=== PATIENT | female | born 1940 | race Caucasian/White ===

== ENCOUNTER → 2016-08-24 | Outpatient (CLI) | payer BC | LOC: BMCIMAGING 10:16 | DX: Z12.31 Encounter for screening mammogram for malignant neoplasm of breast (principal) | CPT/HCPCS: G0202 ==

== ENCOUNTER → 2016-12-07 | Outpatient (CLI) | payer BC | LOC: FIMAGING 14:47 | PROVIDERS: ATTEND Internal Medicine | DX: R91.1 Solitary pulmonary nodule (principal) ==

== ENCOUNTER → 2017-07-22 | Outpatient (CLI) | payer BC | LOC: FIMAGING 14:52 | PROVIDERS: ATTEND Internal Medicine Critical Care Medicine | DX: R91.8 Other nonspecific abnormal finding of lung field (principal); J45.909 Unspecified asthma, uncomplicated; I25.10 Atherosclerotic heart disease of native coronary artery without angina pectoris ==

== ENCOUNTER 2017-10-06 08:31 | Inpatient (IN) | payer BC, OTHER ==
--- NOTE | 2017-10-06 09:27 | EDPHY ---
H & P Time Seen by Provider: 10/06/17 08:55 HPI/ROS: CHIEF COMPLAINT: Right leg pain HISTORY OF PRESENT ILLNESS: 77-year-old female presents to the emergency department with severe pain in her right leg and right ankle. The patient states that she had an abrasion about 2 weeks ago at the posterior aspect of her right calf. She states that it was slow to heal. She saw her primary care provider as well as a voip technician. She was not started on antibiotics. She states that when she went to bed last night she was feeling fine and even when she woke up around 1 o'clock this morning to go the bathroom she did not notice pain in her right ankle or leg, however at 6 o'clock this morning she noted redness, swelling and severe pain in her right leg and ankle. She denies any known trauma or injury. She states she is unable to bear weight secondary to the pain. She has felt chilled since this morning. She felt nauseous when she arrived in the emergency department, however has not vomited. No back pain. REVIEW OF SYSTEMS: Constitutional: Subjective chills Eyes: No double or blurry vision. ENT: No sore throat. Respiratory: No cough, no shortness of breath. Cardiac: No chest pain. Gastrointestinal: No abdominal pain, vomiting or diarrhea. Genitourinary: No dysuria. Musculoskeletal: No neck or back pain. Skin: Redness swelling right ankle and right leg. No rashes. Neurological: No headache. Past Medical/Surgical History: Atrial fibrillation, heart murmur, orthopedic surgery Social History: Smoking Status: Never smoked Physical Exam: General Appearance: Alert, no distress. Eyes: Pupils equal and round. Extraocular motions are all intact. ENT: Mouth: Mucous membranes moist. Respiratory: No wheezing, rhonchi, or rales, lungs are clear to auscultation. Cardiovascular: Regular rate and rhythm. Systolic ejection murmur noted. Gastrointestinal: Abdomen is soft and nontender, no masses, no rebound or guarding, bowel sounds normal. Neurological: Alert and oriented x 3, cranial nerves II through XII grossly intact Skin: Skin is warm and dry. She has redness noted to the anterior medial aspect of her right ankle extending up into her right mid calf. No vesicles. Extremely tender to palpate even just to light touch. She has mild pain with passive range of motion of her right ankle. It is slightly swollen. It is not circumferential. No lymphangitis. Normal sensation to light touch with normal 2 point discrimination. Strong dorsalis pedis pulse on the dorsal aspect of her left foot. Musculoskeletal: Nontender to palpate along the cervical, thoracic or lumbar spine. Neck is supple. Extremities: Full range of motion and no peripheral edema. Psychiatric: Patient is oriented X 3, there is no agitation. Constitutional: Initial Vital Signs Temperature (C) 37 C 10/06/17 08:38 Heart Rate 119 H 10/06/17 08:38 Respiratory Rate 20 10/06/17 08:38 Blood Pressure 155/82 H 10/06/17 08:38 O2 Sat (%) 95 10/06/17 08:38 O2 Delivery Mode Room Air Allergies/Adverse Reactions: lisinopril Allergy (Verified 10/06/17 08:35) Sulfa (Sulfonamide Antibiotics) Allergy (Verified 10/06/17 08:35) Home Medications: Medication Instructions Recorded Apixaban [Eliquis] 5 mg PO BID 10/06/17 Cholecalciferol Vit D3 [Vitamin D3 1,000 units PO DAILY 10/06/17 (*)] Dronedarone HCl [Multaq 400 mg (*)] 400 mg PO BIDMEAL 10/06/17 Furosemide [Furosemide] 20 mg PO HS 10/06/17 Herbals/Supplements -Info Only 1 ea PO DAILY 10/06/17 Levalbuterol Inhaler [Xopenex Hfa 1 puffs IH DAILY PRN 10/06/17 Inhaler (*)] Potassium Chloride [Potassium 20 meq PO HS 10/06/17 Chloride] amLODIPine/VALSARTAN 1 each PO DAILY 10/06/17 [Amlodipine-Valsartan 5-160 mg] Medical Decision Making ED Course/Re-evaluation: 77-year-old female presents to the emergency department with severe pain in her right leg unable to bear weight. Clinically the patient appears to have redness and warmth consistent with cellulitis. Although this was a very acute onset. The patient was also seen examined by Dr. Marvin Uribe, who recommends admission to the hospital as well as IV vancomycin for cellulitis. The patient will be admitted to hospitalist. Differential Diagnosis: Including but not limited to cellulitis, herpes zoster, DVT, osteomyelitis, wound infection - Data Points Laboratory Results: Laboratory Results 10/06/17 09:20 10/06/17 09:20 10/06/17 10/06/17 10/06/17 09:20 09:20 09:20 WBC 8.68 10^3/uL 10^3/uL (3.80-9.50) RBC 3.82 10^6/uL L 10^6/uL (4.18-5.33) Hgb 11.8 g/dL L g/dL (12.6-16.3) Hct 35.0 % L % (38.0-47.0) MCV 91.6 fL fL (81.5-99.8) MCH 30.9 pg pg (27.9-34.1) MCHC 33.7 g/dL g/dL (32.4-36.7) RDW 13.7 % % (11.5-15.2) Plt Count 167 10^3/uL 10^3/uL (150-400) MPV 9.0 fL fL (8.7-11.7) Neut % (Auto) 91.0 % H % (39.3-74.2) Lymph % (Auto) 6.8 % L % (15.0-45.0) [place] % (Auto) 1.3 % L % (4.5-13.0) Eos % (Auto) 0.1 % L % (0.6-7.6) Baso % (Auto) 0.2 % L % (0.3-1.7) Nucleat RBC Rel Count 0.0 % % (0.0-0.2) Absolute Neuts (auto) 7.90 10^3/uL H 10^3/uL (1.70-6.50) Absolute Lymphs (auto) 0.59 10^3/uL L 10^3/uL (1.00-3.00) Absolute Monos (auto) 0.11 10^3/uL L 10^3/uL (0.30-0.80) Absolute Eos (auto) 0.01 10^3/uL L 10^3/uL (0.03-0.40) Absolute Basos (auto) 0.02 10^3/uL 10^3/uL (0.02-0.10) Absolute Nucleated RBC 0.00 10^3/uL 10^3/uL (0-0.01) Immature Gran % 0.6 % % (0.0-1.1) Immature Gran # 0.05 10^3/uL 10^3/uL (0.00-0.10) VBG Lactic Acid 2.3 mmol/L H mmol/L (0.7-2.1) Sodium 137 mEq/L mEq/L (135-145) Potassium 4.0 mEq/L mEq/L (3.5-5.2) Chloride 104 mEq/L mEq/L (97-110) Carbon Dioxide 23 mEq/l mEq/l (22-31) Anion Gap 10 mEq/L mEq/L (8-16) BUN 13 mg/dL mg/dL (7-23) Creatinine 0.5 mg/dL L mg/dL (0.6-1.0) Estimated GFR > 60 Glucose 105 mg/dL H mg/dL (70-100) Calcium 8.7 mg/dL mg/dL (8.5-10.4) Medications Given: Acetaminophen (Tylenol) 650 mg PO Q4HRS PRN PRN Reason: Pain, Mild/Fever, Can Take PO Stop: 04/04/18 11:19 Last Admin: 10/06/17 14:25 Dose: 650 mg Sodium Chloride (Ns) 1,000 mls @ 150 mls/hr IV CONT SUKHI Stop: 04/04/18 13:14 Last Admin: 10/06/17 14:59 Dose: 1,000 mls Clindamycin Phosphate/Dextrose (Cleocin 600 Mg (Premix)) 50 mls @ 100 mls/hr IV Q8HRS SUKHI PRN Reason: Protocol Stop: 11/05/17 15:14 Last Admin: 10/06/17 15:17 Dose: 50 mls Ondansetron HCl (Zofran) 4 mg IVP Q4HRS PRN PRN Reason: Nausea/Vomiting, Can't Take PO Stop: 04/04/18 11:19 Last Admin: 10/06/17 12:47 Dose: 4 mg Oxycodone HCl (Oxycodone Ir) 5 - 10 mg PO Q3HRS PRN PRN Reason: Pain, Severe Able to Take PO Stop: 10/16/17 11:19 Last Admin: 10/06/17 14:25 Dose: 5 mg Discontinued Medications Vancomycin/Sodium Chloride (Vancomycin 1 Gm (Premix)) 250 mls @ 250 mls/hr IV EDNOW ONE PRN Reason: Protocol Stop: 10/06/17 12:19 Last Admin: 10/06/17 11:35 Dose: 250 mls Departure - Departure Disposition: [facility] Acute Clinical Impression: Cellulitis of right leg Condition: Good
[2017-10-06 09:38] LABS: PLATELET COUNT 167 10^3/uL (150-400)
[2017-10-06] MEDS ORDERED: ONDANSETRON DISINTEGRATING 4 MG TAB PO PRN (11:20)
[2017-10-06] MEDS ORDERED: VANCOMYCIN HCL/NORMAL SALINE 250 ML IV ONE (11:20)
[2017-10-06] MEDS: ONDANSETRON 4 MG/2 ML VIAL IVP PRN ×2 (12:47→21:05)
[2017-10-06] MEDS: oxyCODONE IR 5 MG TAB PO PRN ×3 (12:50→21:23)
[2017-10-06] MEDS ORDERED: LEVALBUTEROL INHALER 200 PUFFS/15 GM MDI IH PRN (13:20)
--- NOTE | 2017-10-06 13:55 | GHP ---
[f rep st] HISTORY AND PHYSICAL DATE OF ADMISSION: 10/06/2017 CHIEF COMPLAINT: Right leg pain. HISTORY OF PRESENT ILLNESS: The patient is a 77-year-old female who presented to the emergency room today with severe, sudden acute onset of right leg and ankle pain. She tells me that she has been de aling with an abrasion for approximately 2 weeks on the posterior aspect of her right calf. She stat es that it was never erythematous but was slow to heal. She has seen her primary care physician for this and was never initiated on antibiotic therapy. She was told on Saturday that if she developed any redness or pain she should go to the emergency room for further evaluation. Last night she said she was in her normal state of health when she went to bed. She woke up at 1 o'clock in the morning to use the bathroom, did not notice any pain or redness of that right leg. However, at 6 a.m. this morn ing she noticed significant redness with swelling and severe sudden acute pain of the right leg. She states that it is so painful she is unable to ambulate on it. She also tells me that since she has been in the emergency room she feels that the redness and pain have significantly increased in the la st several hours. She denies any other known trauma or injury to this leg. She tells me that she is feeling chilled intermittently but has no other complaints. She denies any current nausea or vomiti ng. She denies any shortness of breath, dyspnea, or chest pain. She denies any headache, blurry vis ion, or other abnormalities. REVIEW OF SYSTEMS: Comprehensive 10-point review of systems is negative other than noted in the HPI. PAST MEDICAL HISTORY: Atrial fibrillation, heart murmur. PAST SURGICAL HISTORY: Bilateral hip replacements. SOCIAL HISTORY: The patient is . Her at the bedside. She resides independently with him. She has never been a smoker. She denies any alcohol or drug abuse or use. HOME MEDICATIONS: Vitamin D, Xopenex, Multaq, amlodipine, valsartan, potassium, Lasix, Eliquis. FAMILY HISTORY: Reviewed and noncontributory. ALLERGIES: Lisinopril, sulfa. PHYSICAL EXAM: GENERAL: The patient is alert and oriented and in no acute distress. VITAL SIGNS: Afebrile at 37, pulse is 109, respiratory rate 16, blood pressure is 134/64. She is saturating 94% o n room air. HEENT: Normocephalic, atraumatic. Mucosal membranes are moist. Pupils equal, round, r eactive to light. RESPIRATORY: Lungs are clear to auscultation bilaterally. No rhonchi or wheezes appreciated. CARDIOVASCULAR: A systolic ejection murmur is noted. She is in irregular rhythm. GAS TROINTESTINAL: Abdomen: Bowel sounds are positive. Soft and nontender. There is no guarding or ri gidity noted. NEUROLOGICAL: The patient is focally intact. She is alert and oriented. SKIN: Warm and dry. She has erythema noted to the anteromedial aspect of the right ankle extending up into her right mid calf. It is extremely tender to palpate, even just to light touch. There is some edema n oted. PULSES: Dorsal pulses are present on the left foot. EXTREMITIES: Full range of motion. No clubbing or cyanosis appreciated. LABORATORY EVALUATION: Lactate of 2.3 with a hemoglobin of 11.8 and hematocrit of 35. ASSESSMENT AND PLAN: The patient is a 77-year-old female who presented to the emergency room with co mplaints of right leg pain. She has been evaluated and diagnosed with: 1. Aggressive cellulitis. Patient has received IV vancomycin in the emergency room. I have consult ed Infectious Disease, who will come see the patient shortly. The cellulitis is concerning as it is fairly aggressive and does appear to be causing a significant amount of discomfort. Further treatmen t and therapy will be decided in conjunction with Infectious Disease recommendation. 2. History of atrial fibrillation. She is rate controlled. We will continue her Eliquis for prophy lactic anticoagulation. 3. Hypertension. We will continue the patient's previously prescribed antihypertensive medications and monitor this. 4. Elevated lactate. The patient will receive IV hydration at this time. 5. Disposition. She will be admitted to observation status with further changes in her hospital cou rse warranting inpatient status. I have discussed the patient with Dr. Dejuan Vann of Infectious Dise ase, as well as Jessica Carr of the emergency room. We will monitor the patient closely with citlalli r therapeutic plan to be decided. /[id number]/MODL
[2017-10-06] MEDS ORDERED: traMADol 50 MG TAB PO PRN (14:21)
[2017-10-06] MEDS: ACETAMINOPHEN 325 MG TAB PO PRN (14:25)
[2017-10-06] MEDS: NS 1,000 ML IV SCH (14:59)
[2017-10-06] MEDS: CLINDAMYCIN 600 MG/DEXTROSE 50 ML IV SCH ×2 (15:17→21:05)
[2017-10-06] MEDS ORDERED: CLINDAMYCIN 600 MG/DEXTROSE 50 ML IV SCH (15:30)
[2017-10-06] MEDS ORDERED: ceFAZolin 2 GM/DEXTROSE 100 ML IV SCH ×2 (16:00→22:00)
--- NOTE | 2017-10-06 16:41 | GCON ---
[f rep st] CONSULTATION INFECTIOUS DISEASE CONSULTATION REFERRING PHYSICIAN: Christy Merino NP REASON FOR CONSULTATION: Right lower extremity rapid onset cellulitis for further evaluation and opinion. CHIEF COMPLAINT: Acute onset redness, pain of right foot. HISTORY OF PRESENT ILLNESS: This is a 77-year-old female, with a past medical history significant for atrial fibrillation, hypertension, heart murmur, who woke up suddenly today with redness involving her foot and ankle. It became extremely tender to touch and, from this morning till now, the area of redness has extended up to her mid calf and leg and partially over the dorsum of her foot. Also, the area of redness has changed in certain areas from acute erythema to some ecchymotic changes. It is extremely tender today, even just to light touch. She denied fevers but had shaking chills on her way to the ER today. She states that she had an abrasion on the back of her leg a couple weeks ago sustained from the back of a chair while she was at a banquet in [place]. She states that she was wearing slacks at the time, and she does not know that there was any actual contact or rips in the slacks. She states that she went to an urgent care to have it evaluated recently, and they just felt it was a healing wound. She saw her bacteriologist food earlier this week, and he felt it was a residual form of a blister and would go away. She saw her primary care doctor on Saturday who also felt that it did not have a classic appearance of an acute infection. She did not have any recent otherwise trauma to the leg. She had not submerged her leg in any fresh water, ocean water, or hot tubs. Blood cultures x2 sets were drawn in the ER, and she was given a dose of vancomycin 1 g. Infectious Disease is now consulted for further evaluation and opinion. REVIEW OF SYSTEMS: GENERAL: No fevers but shaking chills today on her way to the ER. HEAD: No headaches. EYES: No change in vision. ENT: No sore throat , difficulty swallowing, ear pain, or drainage. Cardiovascular: No chest pain or rapid heartbeat. RESPIRATORY: No shortness of breath, cough, or sputum production. ABDOMEN: No nausea, vomiting, abdominal pain, diarrhea. : No dysuria or hematuria. BACK: No flank pain or increase in her stable chronic back pain. EXTREMITIES: No other areas of joint pain. SKIN: No other areas of rashes or open wounds. SKIN: As above. Rest of 10-point review of systems essentially negative except for above. PAST MEDICAL HISTORY: Significant for atrial fibrillation, hypertension, heart murmur. PAST SURGICAL HISTORY: Significant for bilateral hip replacements. ALLERGIES: Sulfa which gives her vomiting and upset stomach. No shortness of breath, throat swelling, hives. Lisinopril gives her cough. Thus, I explained to her that both of these are not true allergies, but adverse effects or intolerances. SOCIAL HISTORY: She is . She is a nonsmoker. She does not drink alcohol. She was in [place] a couple of weeks ago for a banquet. Her daughter is here as well at bedside, along with her . FAMILY HISTORY: Significant for her brother and mother having leukemia, and her father having heart disease and high blood pressure. PHYSICAL EXAMINATION: VITAL SIGNS: Temperature, current, 37.0, pulse is 109, blood pressure 134/64, pulse is 16, and O2 saturation 94% on room air. GENERAL : Patient is sitting in bed. No acute respiratory distress. Awake, alert, and oriented x3. HEENT: Head is normocephalic, atraumatic. Pupils are equal, round, reactive to light. No conjunctival injection. No petechiae noted. Oropharynx is clear. No posterior erythema or thrush. CARDIOVASCULAR: S1, S2. Irregular rate and rhythm, with a 3/6 systolic murmur appreciated. RESPIRATORY: Clear bilaterally. No rhonchi appreciated. ABDOMEN: Positive bowel sounds in all 4 quadrants. Soft, nontender, nondistended. No organomegaly appreciated. EXTREMITIES: No lower extremity edema. She has wrinkling appreciated bilaterally and did have edema about 48 hours ago on both extremities. She has some burning discoloration involving both lower extremities. No tenia pedis noted bilaterally. She has erythema very predominantly on the medial aspect of her foot adjacent to the ankle and extending up to the lower leg, and this is present on the posterior aspect, extending to the mid calf, and then to a certain degree on the anterior aspect as well. There is marked pink erythema on the dorsal aspect of the foot and anterior aspect of the leg as well today. SKIN: The leg, foot, and ankle is extremely tender to touch. There is some ecchymotic changes, particularly on the medial aspect of the ankle and foot area and lower leg that is extremely tender as well. She does appear to have perhaps an early looking blister-like development also as well on the posterior aspect of the leg. An old previous abrasion that she mentioned appears kind of within the area of erythema. There is no active blister at this present time. LABORATORY DATA: White blood cell count is 8.6, hemoglobin 11.8, platelets are 167, neutrophil count 91%. Venous lactic acid 2.3. Chemistry: Sodium 137, potassium 4.0, chloride 104, bicarb 23, BUN is 13, creatinine 0.5, glucose is 105. Blood cultures x2 sets are pending. I reviewed her microbiology data dating back to 2009. She has no evidence of MRSA present in any cultures. She has had E coli isolated in several urine cultures. ASSESSMENT: Acute onset right lower extremity cellulitis with some early ecchymotic changes. PLAN: Given the clinical onset and presentation, as well as progression over today, as well as extremely painful in nature, concern for possible toxin- mediated process and or deeper infectious process such necrotizing fascitis. The character appears more consistent with a streptococcal infection, although cannot rule out a staphylococcal infection. There is no evidence of any abscess at this present time. Would recommend a stat MRI of the leg and foot to ensure no deeper involvement. If such is present, then will need surgical consultation for exploration and debridement. The above was explained in detail to the patient, her , and her daughter and family at the bedside. For now, given the clinical presentation that looks appears more consistent with streptococcal, will change vancomycin to Ancef therapy but will add clindamycin. Recommend elevation of the lower extremity and have positioned her lower extremity in that fashion for her. I have outlined the areas of erythema as well. Care was coordinated with the hospitalist team and her nurse. Thank you very much for giving us the opportunity to care for your patient in consultation. /[id number]/MODL MTDD
[2017-10-06] MEDS ORDERED: GADOBUTROL 10 ML VIAL IVP ONE (16:53)
[2017-10-06] MEDS: DRONEDARONE HCL 400 MG TAB PO SCH (18:04)
[2017-10-06] MEDS: ceFAZolin 2 GM/SWFI 2 GM/20 ML SYR IVP SCH (18:08)
[2017-10-06] MEDS ORDERED: NON-FORMULARY NEW DRUG (Potassium Chloride [Potassium Chloride] 20 MEQ) PO SCH (21:00)
[2017-10-06] MEDS: APIXABAN 5 MG TAB PO SCH (21:05)
[2017-10-06] MEDS: POTASSIUM CL 20 MEQ TAB PO SCH (21:05)
[2017-10-06] MEDS: FUROSEMIDE 20 MG TAB PO SCH (21:05)
[2017-10-07] MEDS: ceFAZolin 2 GM/SWFI 2 GM/20 ML SYR IVP SCH ×4 (00:24→22:31)
[2017-10-07] MEDS: NS 1,000 ML IV SCH (03:20)
[2017-10-07 05:13] LABS: PLATELET COUNT 163 10^3/uL (150-400)
[2017-10-07] MEDS: CLINDAMYCIN 600 MG/DEXTROSE 50 ML IV SCH ×3 (05:14→22:25)
[2017-10-07] MEDS: oxyCODONE IR 5 MG TAB PO PRN ×2 (05:43→17:15)
[2017-10-07] MEDS: ONDANSETRON 4 MG/2 ML VIAL IVP PRN ×3 (05:44→16:48)
--- NOTE | 2017-10-07 08:18 | HOSPPROG ---
Hospitalist Progress Note Assessment/Plan: # R leg cellulitis - slight extension beyond marked line - will not change abx at this time - cont ancef and clinda per ID recs # hypoxia, nocturnal - possibly ASHLEY; PE unlikely given eliquis - check CXR today # a-fib - cont eliquis # htn - cont norvasc, valsartan, lasix # anemia - slightly lower than previous # hx pulm nodules - followed by Dr Bui as outpatient Subjective: afebrile overnight; no diarrhea, SOB or CP Objective: Vital Signs Temp Pulse Resp BP Pulse Ox 36.8 C 90 16 109/57 L 92 10/07/17 07:44 10/07/17 07:44 10/07/17 07:44 10/07/17 07:44 10/07/17 07:44 Laboratory Results 10/07/17 04:43 10/07/17 04:43 chart reviewed MRI prelim read reviewed - Physical Exam Constitutional: no apparent distress, appears nourished Cardiovascular: no murmur, rub, or gallop, irregularly irregular Respiratory: no respiratory distress, no rales or rhonchi Gastrointestinal: normoactive bowel sounds, soft, non-tender abdomen Musculoskeletal: other (R leg with erythema/warmth, TTP; slight extension beyond marked line on post calf) ICD10 Worksheet Patient Problems: Problems Problem Status Onset Cellulitis of right leg Acute
[2017-10-07] MEDS ORDERED: AMLODIPINE PO SCH (09:00)
[2017-10-07] MEDS ORDERED: VALSARTAN PO SCH (09:00)
[2017-10-07] MEDS ORDERED: Herbals/Supplements -Info Only PO SCH (09:00)
[2017-10-07] MEDS: APIXABAN 5 MG TAB PO SCH ×2 (09:47→20:25)
[2017-10-07] MEDS: DRONEDARONE HCL 400 MG TAB PO SCH ×2 (09:47→18:39)
[2017-10-07] MEDS: VALSARTAN 160 MG TAB PO SCH ×2 (09:48→12:33)
[2017-10-07] MEDS: amLODIPine BESYLATE 5 MG TAB PO SCH ×3 (09:48→10:55)
[2017-10-07] MEDS: CHOLECALCIFEROL VIT D3 1,000 UNITS TAB PO SCH (09:48)
[2017-10-07] MEDS ORDERED: DILTIAZEM 125 MG in D5W 125 ML IV SCH (11:30)
--- NOTE | 2017-10-07 12:16 | CPEKG ---
Heart Rate: 141 RR Interval: 426 QRSD Interval: 74 QT Interval: 288 QTC Interval: 441 QRS [place]: -3 T Wave [place]: 65 EKG Severity - ABNORMAL ECG - EKG Impression: ATRIAL FIBRILLATION, V-RATE 106-160 Electronically Signed By: Narcisa Valadez 07-Oct-2017 19:28:14
--- NOTE | 2017-10-07 12:49 | ASMTCASEMG ---
Living Arrangements What is your living Answers: With Spouse arrangement? Who do you live with? Type Of Residence What kind of residence do Answers: House you live in? Discharge Plan Comments Coordination Status Comments Notes: Pt is a 77 y/o female admitted for cellulitis of right ankle and leg. Pt is in rapid afib and will be transferred to PCU. Pt will most likely d/c independent when medically stable. No therapies ordered at this time. CM available for changes. Plan: Independent Date Signed: 10/07/2017 12:48 PM Electronically Signed By:ROSIO Ervin
--- NOTE | 2017-10-07 13:16 | PCMIDPN ---
Assessment/Plan: 1. Necrotizing cellulitis right lower extremity without MRI evidence of fasciitis or myositis: Agree that clinical history seems more consistent with streptococcal etiology. Continue both Ancef and clindamycin as is. Patient needs to keep her right lower extremity elevated as best she can, and the rationale for this was explained to her in detail today. She expressed understanding. 2. Oral candidiasis: Nystatin swish and spit. Over 25 min was spent with this patient today. 10/07/17 13:18 Subjective: Patient is being transferred to the cardiac floor secondary to new onset atrial fibrillation. Patient states this transpired in the past before hip replacement. States that her right lower extremity is still painful. No numbness of the lower extremity. Denies diarrhea. Objective: Ancef 2 g IV q.8 hours day 1 Clindamycin 600 mg IV q.8 hours day 1 Afebrile Vital Signs Temp Pulse Resp BP Pulse Ox 36.9 C 134 H 18 95/68 L 95 10/07/17 11:45 10/07/17 11:45 10/07/17 11:45 10/07/17 11:45 10/07/17 11:45 Laboratory Results 10/07/17 04:43 10/07/17 04:43 Blood cultures x2 pending - Physical Exam General Appearance: alert, no apparent distress EENT: thrush Respiratory: lungs clear Cardiac/Chest: irregularly irregular Extremities: other (Right lower extremity with beet red erythema, with small areas of necrosis medial, and posterior early. No bullae or blisters noted. Patient has sensation throughout. Swelling noted, but not significantly so compared with the left. Erythema spares the dorsum of the foot. No tinea pedis. No significant extension erythema beyond the demarcated borders.) Abdomen: non-tender, soft Skin: No rash ICD10 Worksheet Patient Problems: Problems Problem Status Onset Cellulitis of right leg Acute
--- NOTE | 2017-10-07 15:28 | PDMN ---
Medical Necessity Medical necessity: M70 cellulitis: progressive concern for poss deeper infection process such as necrotizing fasciitis. pt also with tachycardia, likely afib, transfer to PCU with monitoring, starting dilt gtt., cont. med nec monitoring, and tx.
[2017-10-07] MEDS: NYSTATIN SUSP 500000 UNIT/5 ML UDCUP PO SCH ×2 (15:49→20:23)
[2017-10-07] MEDS: FUROSEMIDE 20 MG TAB PO SCH (20:24)
[2017-10-07] MEDS: POTASSIUM CL 20 MEQ TAB PO SCH (20:24)
[2017-10-08 03:59] LABS: PLATELET COUNT 164 10^3/uL (150-400)
[2017-10-08] MEDS: NYSTATIN SUSP 500000 UNIT/5 ML UDCUP PO SCH ×4 (05:58→22:04)
[2017-10-08] MEDS: CLINDAMYCIN 600 MG/DEXTROSE 50 ML IV SCH ×3 (05:58→22:04)
[2017-10-08] MEDS: ceFAZolin 2 GM/SWFI 2 GM/20 ML SYR IVP SCH ×3 (09:01→23:14)
[2017-10-08] MEDS: APIXABAN 5 MG TAB PO SCH ×2 (09:01→22:04)
[2017-10-08] MEDS: CHOLECALCIFEROL VIT D3 1,000 UNITS TAB PO SCH (09:01)
[2017-10-08] MEDS: DRONEDARONE HCL 400 MG TAB PO SCH ×2 (09:02→17:21)
--- NOTE | 2017-10-08 09:29 | HOSPPROG ---
Hospitalist Progress Note Assessment/Plan: # R leg cellulitis - slight improvement today - cont ancef and clinda per ID recs # a-fib, episode of RVR yesterday which resolved - cont eliquis - cont multaq # hypoxia, nocturnal - possibly ASHLEY; PE unlikely given eliquis # htn - holding norvasc, valsartan, lasix # anemia - stable # hx pulm nodules - followed by Dr Bui as outpatient Subjective: had an episode of a-fib yesterday; no in NSR; leg with less pain Objective: Vital Signs Temp Pulse Resp BP Pulse Ox 36.7 C 86 20 114/63 93 10/08/17 07:58 10/08/17 07:58 10/08/17 03:32 10/08/17 07:58 10/08/17 07:58 Laboratory Results 10/08/17 03:45 10/08/17 03:45 10/07/17 10/08/17 10/09/17 05:59 05:59 05:59 Intake Total 250 Balance 250 CXR personally reviewed tele personally reviewed - Physical Exam Constitutional: no apparent distress, appears nourished Cardiovascular: regular rate and rhythym, no murmur, rub, or gallop Respiratory: no respiratory distress, no rales or rhonchi, clear to auscultation Gastrointestinal: soft, non-tender abdomen, no palpable masses Musculoskeletal: other (leg erythema improved; still TTP) ICD10 Worksheet Patient Problems: Problems Problem Status Onset Cellulitis of right leg Acute
[2017-10-08] MEDS: ACETAMINOPHEN 325 MG TAB PO PRN (10:39)
--- NOTE | 2017-10-08 14:41 | PCMIDPN ---
Assessment/Plan: Assessment/Plan: 1. Extensive LLE cellulitis with ecchymotic/early necrotic changes: - some improvment clinically although slow - wbc elevated and only minimally better -blood cx ngtd -ecchyotic/early necrosis changes new yesterday (compared to Saturday) but no other new areas -Continue with Ancef + Clinda - low threshold to repeat MRI right leg vs surgical eval- if doens't show continued improvement or new changes. EXplaned this to patient -recheck labs in Am. - conitnue with LE elevation. - care coordinated with hospitalist team meds ancef clinda Subjective: afebrile. overall patient feels better. no further chills. no nausea but does have decrease in appetite. denies sob, abd pain or diarrhea. requiring o2 via nc. 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 has not taken pain meds since yesterday. however pain meds due make her more nauseaous. Objective: Vital Signs Temp Pulse Resp BP Pulse Ox 37.1 C 90 16 102/47 L 94 10/08/17 13:30 10/08/17 13:30 10/08/17 13:30 10/08/17 13:30 10/08/17 13:30 Laboratory Results 10/08/17 03:45 10/08/17 03:45 10/07/17 10/08/17 10/09/17 05:59 05:59 05:59 Intake Total 250 Balance 250 - Physical Exam General Appearance: alert, no apparent distress Respiratory: lungs clear Cardiac/Chest: regular rate, rhythm Extremities: swelling Abdomen: normal bowel sounds, non-tender, soft, No distended Skin: erythema (RLE: erythema lower leg (anterior, medial, posterior), and erythema on posterior leg 2/[address] up. scattered areas of ecchmosis. very tender to palpate. lower leg medial area which was the worst when she came in is looking better. she has one small blister on posterior lower calf. less warm. les swelling compared to two days ago ) ICD10 Worksheet Patient Problems: Problems Problem Status Onset Cellulitis of right leg Acute
[2017-10-08] MEDS: FUROSEMIDE 20 MG TAB PO SCH (15:48)
--- NOTE | 2017-10-08 16:11 | ASMTCMCOM ---
CM Note CM Note Notes: 10/08/2017 Case Management Note Reviewed chart, discussed case with RN. PT is recommending home for pt. The case management discharge plan will take into account the outcome of planned MRI for tomorrow. Antibiotic needs at discharge remain unclear. Case Management d/c poc: to be determined Case Management to follow. Date Signed: 10/08/2017 04:10 PM Electronically Signed By:Meghana Carrion RN
[2017-10-08] MEDS: POTASSIUM CL 20 MEQ TAB PO SCH (22:04)
[2017-10-09 04:37] LABS: PLATELET COUNT 185 10^3/uL (150-400)
[2017-10-09] MEDS: CLINDAMYCIN 600 MG/DEXTROSE 50 ML IV SCH ×3 (05:48→21:52)
[2017-10-09] MEDS: NYSTATIN SUSP 500000 UNIT/5 ML UDCUP PO SCH ×4 (05:48→21:52)
[2017-10-09] MEDS: ceFAZolin 2 GM/SWFI 2 GM/20 ML SYR IVP SCH ×3 (08:52→23:02)
--- NOTE | 2017-10-09 08:52 | PCMIDPN ---
Assessment/Plan: Severe RLE Cellulitis with couple areas of necrotic material, most prominently on posterior calf. About 20-40% better by patient report from admit, which is NOT suggestive of nec fasciitis but still some concern for localized areas necrotizing cellulitis that may need debridement --patient on dual therapy with clindamycin and cephalosporin. Clinda for protein binding character/unga effect, likely dc clindamycin soon --offload RLE --ask surgery to eval posterior leg, MRI negative. May need to hold Eliquis meds clindamycin 600mg IV q8h#3 Ancef 2gm IV q8h Eliquis 5mg BID for afib micro 10/06 blood cx (2) NGTD Subjective: denies diarrhea leg pain walking 20% leg pain at rest 40% better low appetite Objective: Vital Signs Temp Pulse Resp BP Pulse Ox 36.8 C 83 17 128/71 H 94 10/09/17 07:28 10/09/17 07:28 10/09/17 07:28 10/09/17 07:28 10/09/17 07:28 Laboratory Results 10/09/17 03:58 10/08/17 03:45 10/08/17 10/09/17 10/10/17 05:59 05:59 05:59 Intake Total 250 950 Balance 250 950 - Physical Exam General Appearance: alert, no apparent distress Respiratory: No accessory muscle use Neck: supple Cardiac/Chest: regular rate, rhythm Extremities: calf tenderness (r mid calf with associated necrotic base), erythema (jairo erythema RLE with recession from some lines and extension in other areas) Skin: No rash Neuro/Psych: alert, normal mood/affect, oriented x 3 - Time Spent With Patient Time Spent with Patient: greater than 35 minutes (care coordinated with Dr. Russell, RN Aysha) Time Spent with Patient: Greater than 35 minutes spent on this patients care, greater than 50% of time spent counseling, educating, and coordinating care regarding the above mentioned plan. ICD10 Worksheet Patient Problems: Problems Problem Status Onset Cellulitis of right leg Acute
[2017-10-09] MEDS: CHOLECALCIFEROL VIT D3 1,000 UNITS TAB PO SCH (08:53)
[2017-10-09] MEDS: APIXABAN 5 MG TAB PO SCH (08:59)
[2017-10-09] MEDS: DRONEDARONE HCL 400 MG TAB PO SCH ×2 (08:59→17:53)
--- NOTE | 2017-10-09 09:11 | HOSPPROG ---
Hospitalist Progress Note Assessment/Plan: # R leg cellulitis - slight improvement today. WBC's normal. MRI neg for osteo. Discussed with ID. - cont ancef and clinda per ID recs - check CRP - surgery to eval today - pressure relieving positioning on back of leg # a-fib, episode of RVR which resolved - cont eliquis - cont multaq # hypoxia, nocturnal - possibly ASHLEY; PE unlikely given eliquis, suspect atelectatic - add IS - consider CXR if not improving # htn - holding norvasc, valsartan - cont home lasix dose # anemia - stable # hx pulm nodules - followed by Dr Bui as outpatient # Full code # dispo - cont inpt Subjective: Pt doing a little better. No fevers. Leg still quite tender, posterior calf especially. No CP or SOB. Denies cough. Objective: Vital Signs Temp Pulse Resp BP Pulse Ox 36.8 C 83 17 128/71 H 94 10/09/17 07:28 10/09/17 07:28 10/09/17 07:28 10/09/17 07:28 10/09/17 07:28 Laboratory Results 10/09/17 03:58 10/08/17 03:45 10/08/17 10/09/17 10/10/17 05:59 05:59 05:59 Intake Total 250 950 Balance 250 950 - Physical Exam Constitutional: no apparent distress Eyes: PERRL Ears, Nose, Mouth, Throat: moist mucous membranes Cardiovascular: regular rate and rhythym Respiratory: other (faint bibasilar atelectatic crackles) Gastrointestinal: normoactive bowel sounds, soft, non-tender abdomen Skin: warm, other (RLE patchy erythema, darker patches on posterior right calf with small open wound) Musculoskeletal: full muscle strength Neurologic: AAOx3 Psychiatric: interacting appropriately ICD10 Worksheet Patient Problems: Problems Problem Status Onset Cellulitis of right leg Acute
--- NOTE | 2017-10-09 14:31 | PDCONSULT ---
General Purchasing Agent Note: 77 y/o female admitted 10/06/17 for RLE cellulitis. She injured her right calf the week before on a metal chair leg and had a small puncture site that drained clear fluid for several days prior to admission. She was started on IV Abx and has been followed by ID after admission to the hospitalist service. Surgical consultation was requested by Dr. Lindsay for possible surgical debridement. MRI on 10/06 showed no fracture, foreign body or fluid collection. Her cellulitis has improved, but not resolved since admission. Her wbc was normal today. BC have been no growth so far PMH: bilateral TKA Afib, paroxysmal meds: Eliquis 5 mg po BID Allergies: lisinopril, Sulfa non-smoker SH: and accompanied by her PE: pleasant elderly female in NAD RLE swelling and erythema to the mid calf stigmata of chronic venous stasis change pedal pulses +2/+2 +3 pitting edema 5 x 10 mm eschar right posterior mid calf with small amount of serous drainage no fluctuance LLE stigmata of chronic venous stasis change pedal pulses +2/+2 Imp: RLE cellulitis-slow to improve possible venous stasis changes Rec:continue IV antibiotics/elevation, I do not think surgical debridement would be helpful at this point Hold Eliquis x 24 hours and reassess tomorrow for worsening typically one would wait 48 hours after last Eliquis dose before surgery Janice Lofton MD, FACS
[2017-10-09] MEDS: FUROSEMIDE 20 MG TAB PO SCH (15:11)
--- NOTE | 2017-10-09 16:45 | ASMTCMCOM ---
CM Note CM Note Notes: Pt on IV ABX's for RLE cellulitis. Not clear yet if she will need LT IV ABX's, talked w/pt and about this possibility and they would likely want to do this at home; pt and family comfortable w/learning how to adminitster. Surgical consult today- no surgery planned at this time. PT felt pt would be fine to dc home and likely will not need home PT. Pt has very good family support. CM will follow. Date Signed: 10/09/2017 04:44 PM Electronically Signed By:Rand Dominguez RN
[2017-10-09] MEDS: POTASSIUM CL 20 MEQ TAB PO SCH (21:52)
[2017-10-10] MEDS: NYSTATIN SUSP 500000 UNIT/5 ML UDCUP PO SCH ×3 (06:15→15:51)
[2017-10-10] MEDS: CLINDAMYCIN 600 MG/DEXTROSE 50 ML IV SCH ×3 (06:15→22:14)
[2017-10-10] MEDS: ceFAZolin 2 GM/SWFI 2 GM/20 ML SYR IVP SCH ×3 (09:10→23:34)
[2017-10-10] MEDS: CHOLECALCIFEROL VIT D3 1,000 UNITS TAB PO SCH (09:10)
[2017-10-10] MEDS: DRONEDARONE HCL 400 MG TAB PO SCH ×2 (09:10→18:10)
--- NOTE | 2017-10-10 11:14 | HOSPPROG ---
Hospitalist Progress Note Assessment/Plan: # R leg cellulitis - slight improvement today. WBC's normal. MRI neg for osteo. Discussed with ID. - cont ancef and clinda per ID recs - rpt CRP in am - surgery following, eliquis held for possible biopsy in 1-2 days if deemed appropriate - pressure relieving positioning on back of leg # a-fib, episode of RVR which resolved - cont eliquis - cont multaq # hypoxia, nocturnal - possibly ASHLEY; PE unlikely given eliquis, suspect atelectatic - add IS - consider CXR if not improving # htn - holding norvasc, valsartan - cont home lasix dose # thrush - resolved, no symptoms x3 day - d/c nystatin at pt's request # anemia - stable # hx pulm nodules - followed by Dr Bui as outpatient # Full code # dispo - cont inpt Subjective: Pt doing ok. Still has some pain in leg, but overall improving. No fevers. AMbulating. Eating ok. Objective: Vital Signs Temp Pulse Resp BP Pulse Ox 36.8 C 92 16 148/72 H 94 10/10/17 07:19 10/10/17 07:19 10/10/17 07:19 10/10/17 07:19 10/10/17 07:19 Laboratory Results 10/09/17 03:58 10/08/17 03:45 10/09/17 10/10/17 10/11/17 05:59 05:59 05:59 Intake Total 950 1435 Balance 950 1435 - Physical Exam Constitutional: no apparent distress Eyes: PERRL Ears, Nose, Mouth, Throat: moist mucous membranes Cardiovascular: regular rate and rhythym Respiratory: no respiratory distress, clear to auscultation Gastrointestinal: normoactive bowel sounds, soft, non-tender abdomen Skin: warm Musculoskeletal: other (RLE with decreased edema, still erythematous and a bit warm, 2+ peripheral pulses) ICD10 Worksheet Patient Problems: Problems Problem Status Onset Cellulitis of right leg Acute
--- NOTE | 2017-10-10 11:53 | PCMIDPN ---
Assessment/Plan: Assessment: Lower extremity cellulitis posterior calf with small area of necrosis. Not surgical at this point. Patient is progressively improving with cefazolin and clindamycin. At this point will continue both antibiotics and if she continues to improve tomorrow discontinue clindamycin. Plan: 1. Continue both cefazolin and clindamycin intravenously at present. 2. Follow appearance of open wound on the back of the right calf. Also follow clinical course. 3. Hopefully transition to oral antibiotics for discharge in 2-3 days. 10/10/17 13:53 Subjective: Patient is resting comfortably in her hospital chair. She denies any new complaint. No fevers or chills. States the right lower extremity has decreased in size. Redness has retreated downward from the drawn borders. Tolerating antibiotics without rash or diarrhea. Objective: Cefazolin # 4 Clindamycin # 4 Vital Signs Temp Pulse Resp BP Pulse Ox 36.8 C 92 16 148/72 H 94 10/10/17 07:19 10/10/17 07:19 10/10/17 07:19 10/10/17 07:19 10/10/17 07:19 Laboratory Results 10/09/17 03:58 10/08/17 03:45 10/09/17 10/10/17 10/11/17 05:59 05:59 05:59 Intake Total 950 1435 Balance 950 1435 C-Reactive Protein 206.9 mg/L (<10.0) H 10/09/17 09:30 - Physical Exam General Appearance: WD/WN, alert, no apparent distress, non-toxic Respiratory: lungs clear, normal breath sounds, No respiratory distress Cardiac/Chest: regular rate, rhythm, No tachycardia Extremities: inflammation, swelling (Improved.), necrosis (Small tiny amount posterior calf), erythema (Decreased from drawn borders.), No non-tender, No normal inspection Skin: normal color, warm/dry, No rash Neuro/Psych: alert, normal mood/affect, oriented x 3 ICD10 Worksheet Patient Problems: Problems Problem Status Onset Cellulitis of right leg Acute
--- NOTE | 2017-10-10 14:19 | ASMTCMCOM ---
CM Note CM Note Notes: Pts case discussed in morning rounds. ID reports that pt can switch to orals in a couple of days. No identified need at this time. PT has cleared pt to be independent. CM available for changes. Plan: Independent Date Signed: 10/10/2017 02:18 PM Electronically Signed By:ROSIO Ervin
[2017-10-10] MEDS: POTASSIUM CL 20 MEQ TAB PO SCH (22:14)
[2017-10-10] MEDS: ACETAMINOPHEN 325 MG TAB PO PRN (23:46)
[2017-10-11] MEDS: CLINDAMYCIN 600 MG/DEXTROSE 50 ML IV SCH (06:00)
[2017-10-11] MEDS: ACETAMINOPHEN 325 MG TAB PO PRN ×2 (07:59→23:51)
[2017-10-11] MEDS: CHOLECALCIFEROL VIT D3 1,000 UNITS TAB PO SCH (07:59)
[2017-10-11] MEDS: DRONEDARONE HCL 400 MG TAB PO SCH ×2 (07:59→17:23)
[2017-10-11] MEDS: ceFAZolin 2 GM/SWFI 2 GM/20 ML SYR IVP SCH ×3 (07:59→23:45)
--- NOTE | 2017-10-11 11:31 | HOSPPROG ---
Hospitalist Progress Note Assessment/Plan: # R leg cellulitis - much improved today. WBC's normal. MRI neg for osteo. CRP trending down. Discussed with ID. - cont ancef, clinda d/c'd, likely to discharge on oral atbx - no surgical intervention planned - pressure relieving positioning on back of leg # a-fib, episode of RVR which resolved - resume eliquis - cont multaq # hypoxia, nocturnal - on room air now. possibly ASHLEY; PE unlikely given eliquis , suspect atelectatic - cont IS - outpt sleep study # htn - anti-hypertensives initially held, but BP's on the rise - resume norvasc and losartan # thrush - d/c'd nystatin at pt's request, clotrimazole troches ordered per ID # anemia - stable # hx pulm nodules - followed by Dr Bui as outpatient # Full code # dispo - cont inpt, home 2-3 days Subjective: Pt doing much better. Leg pain improving. No fevers/chills. Ambulating with less pain. Eating well. Objective: Vital Signs Temp Pulse Resp BP Pulse Ox 36.4 C 81 16 174/81 H 92 10/11/17 07:55 10/11/17 07:55 10/11/17 07:55 10/11/17 07:55 10/11/17 07:55 Laboratory Results 10/09/17 03:58 10/08/17 03:45 10/10/17 10/11/17 10/12/17 05:59 05:59 05:59 Intake Total 1435 1110 Balance 1435 1110 - Physical Exam Constitutional: no apparent distress Eyes: PERRL Ears, Nose, Mouth, Throat: moist mucous membranes Cardiovascular: regular rate and rhythym Respiratory: no respiratory distress Gastrointestinal: normoactive bowel sounds, soft, non-tender abdomen Skin: warm Musculoskeletal: other (RLE with decreased erythema and decreased edema) Neurologic: AAOx3 Psychiatric: interacting appropriately ICD10 Worksheet Patient Problems: Problems Problem Status Onset Cellulitis of right leg Acute
--- NOTE | 2017-10-11 11:33 | PCMIDPN ---
Assessment/Plan: 1. Necrotizing cellulitis right lower extremity without MRI evidence of fasciitis or myositis: *Much* better compared with 2 days ago. Given her significant improvement, I agree with Dr. Mendoza, that the patient can likely be transitioned to oral therapy in the next 48 hr or so. Long conversation with her about that today. She understands she will likely be here through the weekend, and perhaps home on Saturday or Saturday on orals. I do not feel she needs a PICC line. Will discontinue clindamycin and continue Ancef alone. I also do not feel that she needs surgery at this point in time, although need to keep an eye on her posterior calf to make sure it does not involve into a drainable focus. (Doubt) . Both the patient and her expressed understanding. 2. Oral candidiasis: Did not tolerate nystatin swish and spit. Will change to clotrimazole troches. Over 25 min was spent with this patient today. Subjective: So much better! Still continues to have some discomfort in her posterior calf, but overall, markedly better compared with when I saw her 3 days ago. No diarrhea. C reactive protein also down to 50! Objective: Ancef 2 g IV q.8 hours day 5 Clindamycin 600 mg q.8 hours day 5 Afebrile Vital Signs Temp Pulse Resp BP Pulse Ox 36.4 C 81 16 174/81 H 92 10/11/17 07:55 10/11/17 07:55 10/11/17 07:55 10/11/17 07:55 10/11/17 07:55 Laboratory Results 10/09/17 03:58 10/08/17 03:45 10/10/17 10/11/17 10/12/17 05:59 05:59 05:59 Intake Total 1435 1110 Balance 1435 1110 C-Reactive Protein 50.3 mg/L (<10.0) H 10/11/17 03:54 Blood cultures sterile - Physical Exam General Appearance: alert, no apparent distress Extremities: other (Right lower extremity: Swelling has practically resolved. Patient has some mild brick red erythema along the lateral malleolar area, and some tenderness/fullness around the superficial ulceration on her posterior calf surrounded by brick red erythema, but overall the erythema along her pretibial area has also practically resolved. Posterior calf is notable for tenderness as outlined, but she is not jumping off the bed as per before. No fluctuance.) ICD10 Worksheet Patient Problems: Problems Problem Status Onset Cellulitis of right leg Acute
[2017-10-11] MEDS: amLODIPine BESYLATE 5 MG TAB PO SCH (11:58)
[2017-10-11] MEDS: CLOTRIMAZOLE 10 MG TROCHE PO SCH ×3 (13:07→20:45)
--- NOTE | 2017-10-11 15:05 | ASMTCMCOM ---
CM Note CM Note Notes: 10/11/2017 Case Management Note Discussed pt during multi disciplinary rounds this morning. There are no new d/c case management needs identified. Case Management d/c poc: remains home independent with follow up as directed. Case Management to follow. Date Signed: 10/11/2017 03:04 PM Electronically Signed By:Meghana Carrion RN
[2017-10-11] MEDS: POTASSIUM CL 20 MEQ TAB PO SCH (20:45)
[2017-10-11] MEDS: APIXABAN 5 MG TAB PO SCH (20:45)
[2017-10-12] MEDS: CLOTRIMAZOLE 10 MG TROCHE PO SCH ×3 (05:15→09:41)
[2017-10-12] MEDS: ACETAMINOPHEN 325 MG TAB PO PRN (05:53)
[2017-10-12 07:25] VITALS: BP 155/97
[2017-10-12] MEDS: DRONEDARONE HCL 400 MG TAB PO SCH (07:46)
[2017-10-12] MEDS: ceFAZolin 2 GM/SWFI 2 GM/20 ML SYR IVP SCH (07:46)
[2017-10-12] MEDS: CHOLECALCIFEROL VIT D3 1,000 UNITS TAB PO SCH (07:47)
[2017-10-12] MEDS: APIXABAN 5 MG TAB PO SCH (07:47)
[2017-10-12] MEDS: amLODIPine BESYLATE 5 MG TAB PO SCH (07:47)
[2017-10-12] MEDS: VALSARTAN 160 MG TAB PO SCH (07:47)
--- NOTE | 2017-10-12 11:00 | PCMIDPN ---
Assessment/Plan: Severe RLE Cellulitis remarkable improvement today. Disease likely mediated by streptococcus. significant improvement in CRP noted yesterday. WBC normalized . no concomitant bacteremia --give dose ceftriaxone today and dc home --dc on 7 days Keflex 500mg PO TID, start around noon tomorrow --will call with follow up for appointment next week. --continue to elevate leg as much as possible meds Ancef 2gm IV q8h, #6 Eliquis 5mg BID for afib micro 10/06 blood cx (2) NGTD Subjective: continued gradual improvement. Ambulated yesterday with minimal difficulty feels ready to go home Objective: Vital Signs Temp Pulse Resp BP Pulse Ox 36.8 C 85 13 155/97 H 90 L 10/12/17 07:24 10/12/17 07:24 10/12/17 07:24 10/12/17 07:24 10/12/17 07:24 Microbiology 10/06/17 11:20 Blood Culture - Final Blood Laboratory Results 10/09/17 03:58 10/08/17 03:45 10/11/17 10/12/17 10/13/17 05:59 05:59 05:59 Intake Total 1110 900 Balance 1110 900 C-Reactive Protein 50.3 mg/L (<10.0) H 10/11/17 03:54 - Physical Exam General Appearance: alert, no apparent distress Respiratory: No accessory muscle use Skin: erythema (very faint erythema remains posterior calf and ankle laterally, anterior lower leg with almost complete resolution of erythema) Neuro/Psych: alert, normal mood/affect, oriented x 3 - Time Spent With Patient Time Spent with Patient: greater than 35 minutes (reviewed plan of care with patient and , including dose of long acting antibiotic, side effects, and need for continued elevation and follow up next week.) Time Spent with Patient: Greater than 35 minutes spent on this patients care, greater than 50% of time spent counseling, educating, and coordinating care regarding the above mentioned plan. ICD10 Worksheet Patient Problems: Problems Problem Status Onset Cellulitis of right leg Acute
--- NOTE | 2017-10-12 16:56 | GDS ---
[f rep st] DISCHARGE SUMMARY DISCHARGE DIAGNOSES: 1. Right lower extremity cellulitis. 2. Atrial fibrillation. 3. Nocturnal hypoxemia; recommend outpatient sleep study. 4. Hypertension. 5. Thrush. 6. Anemia. 7. History of pulmonary nodules. HISTORY: For details, please see the history and physical dated October 06, 2017. In brief, the hans soler is a 77-year-old female with history of atrial fibrillation and hypertension, [facility]. She was found to have an aggressive cellulitis and was admi tted to the hospital for further management. The patient was admitted to the progressive care unit. She was initially treated with IV vancomycin. Infectious Disease consult was obtained given the severity of her cellulitis. She underwent MRI, w hich was negative for fasciitis, myositis, abscess, or evidence of osteomyelitis. This was suspected to be streptococcal in etiology, and she was transitioned to Ancef and clindamycin; the latter being due to concern for possible necrotizing fasciitis. She was very slow to respond, with ongoing pain, erythema and edema. Surgical consultation was obtained for consideration of biopsy or surgical inte rvention. Ultimately, surgical debridement was not necessary. Her condition did slowly improve. He r pain, redness, and swelling are dramatically decreased on the day of discharge. She remains afebri le. Her blood cultures are negative. She is deemed safe for discharge home on oral antibiotics. DISPOSITION: Patient is discharged home in stable condition. FOLLOWUP: 1. Toshia Grace MD, at [facility]. 2. Smith Gonzalez MD, primary care. DISCHARGE MEDICATIONS: Please see [facility] for completed outpatient medication list. New medication s on discharge include Keflex 500 mg p.o. t.i.d. (#21/no refills) and clotrimazole troches 10 mg p.o. 5 times daily for 1 week while on antibiotics for thrush. She will continue all other outpatient medications as previously prescribed including Multaq, amlodip ine, valsartan, furosemide, apixaban, and potassium. /[id number]/MODL
== END 2017-10-12 13:22 | disposition home or self-care (01) | DRG 603 ==
LOC: OBSVTOIN 11:19 → F3E 12:18 → F2W 10-07 13:38
PROVIDERS: ADMIT Internal Medicine; ATTEND Hospitalist
DX: L03.115 Cellulitis of right lower limb (principal); B95.5 Unspecified streptococcus as the cause of diseases classified elsewhere; I48.0 Paroxysmal atrial fibrillation; R09.02 Hypoxemia; I10 Essential (primary) hypertension; B37.0 Candidal stomatitis; D64.9 Anemia, unspecified; R91.8 Other nonspecific abnormal finding of lung field; Z79.01 Long term (current) use of anticoagulants; Z96.653 Presence of artificial knee joint, bilateral
CPT/HCPCS: 97116-GP; 97161-GP; 97530-GP; A9585; G0378; G8978-GP-CJ; G8979-GP-CI; J0690; J0696; J2405; J3370

== ENCOUNTER 2017-10-14 16:17 | Inpatient (IN) | payer BC, OTHER ==
--- NOTE | 2017-10-14 16:42 | EDPHY ---
H & P Time Seen by Provider: 10/14/17 16:38 HPI/ROS: CHIEF COMPLAINT: Right leg redness HISTORY OF PRESENT ILLNESS: Patient was admitted from 10/06/17-10/12/17 with complicated right lower extremity cellulitis treated initially with vancomycin, then Ancef and clindamycin, now on oral Keflex. She was seen by infectious disease and was doing well until today when she developed pain redness and swelling on the right lower leg near the lateral malleolus extending into the ankle and proximally into the calf. Symptoms mild reminiscent of her initial admission. Not associated with fevers and chills. Worse with weight-bearing or palpation. REVIEW OF SYSTEMS: Eye: no change in vision ENT: no sore throat Cardiac: no chest pain or syncope Pulmonary: no cough or SOB Abdomen: no vomiting, diarrhea, abdominal pain Musculoskeletal: HPI Skin: HPI Neuro: no headache Constitutional: no fever : no urinary symptoms A comprehensive 10 point review of systems is otherwise negative aside from elements mentioned in the history of present illness. PAST MEDICAL HISTORY: Discharge summary dated 10/12/2017 personally reviewed includes right leg cellulitis, AFib, hypertension, anemia Social history: Here with her family General Appearance: Alert and conversant, cooperative. Eyes: No scleral icterus. ENT, Mouth: Normal mucous membranes. Respiratory: Normal respiratory effort, breath sounds equal, lungs are clear to auscultation. Cardiovascular: Distant heart sounds, no murmur Gastrointestinal: Abdomen is soft and non tender. Neurological: Alert, face symmetric, normal motor and sensory in extremities. Skin: Patient has redness on the lateral side of the right leg with swelling and tenderness to palpation as well as a dressing over a posterior right calf wound. There is a 1 cm darker scab closer to the heel on the lateral side but no blisters and no crepitus. No lymphangitis. Musculoskeletal: Right leg edema compared to the left but compartments in the right lower leg are soft. Psychiatric: Not agitated. Emergency Department course/MDM: 1658: Discussed with Dr. Mendoza, recommends admission IV antibiotics and imaging. 1755: Personally seen by Dr. Mendoza in the ER, IV Ancef 2 g administered in the ED and admission. Smoking Status: Never smoked Constitutional: Initial Vital Signs Temperature (C) 36.6 C 10/14/17 16:21 Heart Rate 99 10/14/17 16:21 Respiratory Rate 18 04/16/18 16:21 Blood Pressure 145/91 H 10/14/17 16:21 O2 Sat (%) 95 10/14/17 16:21 O2 Delivery Mode Room Air Allergies/Adverse Reactions: lisinopril Allergy (Verified 10/14/17 16:21) Sulfa (Sulfonamide Antibiotics) Allergy (Verified 10/14/17 16:21) Home Medications: Medication Instructions Recorded Apixaban [Eliquis] 5 mg PO BID 10/06/17 Cholecalciferol Vit D3 [Vitamin D3 1,000 units PO DAILY 10/06/17 (*)] Dronedarone HCl [Multaq 400 mg (*)] 400 mg PO BIDMEAL 10/06/17 Herbals/Supplements -Info Only 1 ea PO DAILY 10/06/17 Levalbuterol Inhaler [Xopenex Hfa 1 puffs IH DAILY PRN 10/06/17 Inhaler (*)] amLODIPine/VALSARTAN 1 each PO DAILY 10/06/17 [Amlodipine-Valsartan 5-160 mg] Cephalexin [Keflex (*)] 500 mg PO TID #21 cap 10/12/17 Clotrimazole [Mycelex (*)] 10 mg PO 5XD #35 gale 10/12/17 Atorvastatin Calcium [Lipitor 10 10 mg PO DAILY 10/14/17 mg (*)] cycloSPORINE 0.05% [Restasis Opht 1 drop EACHEYE BID 10/14/17 Drops(*)] Medical Decision Making - Diagnostics Imaging Results: Imaging Impressions Extremity Venous Study 10/14/17 17:01 Impression: No deep venous thrombosis right leg. Imaging: Discussed imaging studies w/ mobile development manager Radiologist Differential Diagnosis: Differential considered including but not limited to DVT, compartment syndrome, cellulitis, abscess, fasciitis. Consult/Admit Bed Type: [place] [address] - Data Points Laboratory Results: Laboratory Results 10/14/17 17:10 10/14/17 17:10 10/14/17 10/14/17 17:10 17:10 WBC 8.68 10^3/uL 10^3/uL (3.80-9.50) RBC 3.81 10^6/uL L 10^6/uL (4.18-5.33) Hgb 11.8 g/dL L g/dL (12.6-16.3) Hct 35.1 % L % (38.0-47.0) MCV 92.1 fL fL (81.5-99.8) MCH 31.0 pg pg (27.9-34.1) MCHC 33.6 g/dL g/dL (32.4-36.7) RDW 14.2 % % (11.5-15.2) Plt Count 340 10^3/uL 10^3/uL (150-400) MPV 9.1 fL fL (8.7-11.7) Neut % (Auto) Not Reported Lymph % (Auto) Not Reported [place] % (Auto) Not Reported Eos % (Auto) Not Reported Baso % (Auto) Not Reported Nucleat RBC Rel Count 0.0 % % (0.0-0.2) Absolute Neuts (auto) Not Reported Absolute Lymphs (auto) Not Reported Absolute Monos (auto) Not Reported Absolute Eos (auto) Not Reported Absolute Basos (auto) Not Reported Absolute Nucleated RBC 0.00 10^3/uL 10^3/uL (0-0.01) Immature Gran % Not Reported Seg Neutrophils % 64 % % Band Neutrophils % 3 % % Lymphocytes % 28 % % Monocytes % 1 % % Metamyelocytes % 3 % % Myelocytes % 1 % % Immature Gran # Not Reported Absolute Seg Neuts 5.56 10^/uL 10^/uL (1.70-6.50) Absolute Band Neuts 0.26 10^3/uL 10^3/uL (0.00-0.70) Absolute Lymphocytes 2.43 10^3/uL 10^3/uL (1.00-3.00) Absolute Monocytes 0.09 10^3/uL L 10^3/uL (0.30-0.80) Absolute Metamyelocyte 0.26 10^3/mL H 10^3/mL (0.00-0.00) Absolute Myelocytes 0.09 10^3/mL H 10^3/mL (0.00-0.00) Platelet Estimate ADEQUATE (ADEQ) Polychromasia 1+ H Echinocytes 1+ H Smear Review By Pending Sodium 136 mEq/L mEq/L (135-145) Potassium 4.2 mEq/L mEq/L (3.5-5.2) Chloride 101 mEq/L mEq/L (97-110) Carbon Dioxide 23 mEq/l mEq/l (22-31) Anion Gap 12 mEq/L mEq/L (8-16) BUN 20 mg/dL mg/dL (7-23) Creatinine 0.5 mg/dL L mg/dL (0.6-1.0) Estimated GFR > 60 Glucose 97 mg/dL mg/dL (70-100) Calcium 8.9 mg/dL mg/dL (8.5-10.4) C-Reactive Protein 9.1 mg/L mg/L (<10.0) Medications Given: Discontinued Medications Cefazolin Sodium/Dextrose (Ancef 2 Gm (Premix)) 100 mls @ 200 mls/hr IV EDNOW ONE PRN Reason: Protocol Stop: 10/14/17 18:25 Last Admin: 10/14/17 18:39 Dose: Not Given Cefazolin Sodium (Cefazolin Syringe) 2 gm in 20 mls @ 200 mls/hr IVP ONCALL ONE Stop: 10/14/17 18:35 Last Admin: 10/14/17 18:26 Dose: 20 mls Departure - Departure Disposition: [facility] Inpatient Acute Clinical Impression: Cellulitis of right leg Condition: Good
[2017-10-14 17:22] LABS: PLATELET COUNT 340 10^3/uL (150-400)
[2017-10-14] MEDS ORDERED: ceFAZolin 2 GM/DEXTROSE 100 ML IV ONE (17:56)
[2017-10-14] MEDS ORDERED: ceFAZolin 2 GM/SWFI 2 GM/20 ML SYR IVP ONE (18:30)
[2017-10-14] MEDS ORDERED: oxyCODONE IR 5 MG TAB PO PRN (19:13)
[2017-10-14] MEDS ORDERED: ACETAMINOPHEN 325 MG TAB PO PRN (19:13)
[2017-10-14] MEDS ORDERED: LEVALBUTEROL INHALER 200 PUFFS/15 GM MDI IH PRN (19:16)
--- NOTE | 2017-10-14 20:33 | GHP ---
[f rep st] HISTORY AND PHYSICAL DATE OF ADMISSION: 10/14/2017 CHIEF COMPLAINT: Increased right leg redness and swelling. HISTORY OF PRESENT ILLNESS: The patient is a 77-year-old female who was recently admitted to the hospital on October 06 for an aggressive right lower extremity cellulitis. She was followed by Infectious Disease and also evaluated by Surgery. She was treated for 6 days with IV antibiotic therapy initially in the form of vancomycin and was then transitioned to cefazolin. Surgical evaluation was obtained during the hospitalization due to a slow response to therapy and some concern for myofascial involvement. Ultimately, no surgical intervention was performed. She improved and was discharged home 2 days ago on oral Keflex. Yesterday, she noticed increased swelling and today she developed a redness over the right lateral ankle and heel area. The swelling then became worse and she returned to the hospital. She has had no fevers or chills. She continues to have significant pain and tenderness in the infected area of her right leg. She has been able to ambulate, but notes her pain has increased with ambulation. In the emergency department, lower extremity Doppler was performed and was negative for DVT. Infectious Disease consult was obtained. She was restarted on IV Ancef and admitted to the hospital for further management. PAST MEDICAL HISTORY: 1. Atrial fibrillation, heart murmur, hyperlipidemia, hypertension, history of pulmonary nodules, followed by Dr. Chas Bui. 2. Chronic anemia. MEDICATIONS: Please see [facility] for completed outpatient medication list. ALLERGIES: Lisinopril, sulfa. FAMILY HISTORY: Reviewed and noncontributory. SOCIAL HISTORY: The patient is . Her is at the bedside. She lives independently. She denies alcohol, tobacco, or drug use. REVIEW OF SYSTEMS: A 10-point review of systems was performed and is negative status per HPI. OBJECTIVE: VITAL SIGNS: Temperature is 36.7, blood pressure 144/77, heart rate 86, respiratory rate 18. She is 98% on room air. GENERAL: Patient is awake, alert, and oriented, in no acute distress. HEENT: Head is atraumatic, normocephalic. Pupils equal, round, and react to light. Extraocular movements intact. Oropharynx clear. Mucous membranes are moist. NECK: Supple. There is no JVD. HEART: Regular rate and rhythm without murmur. LUNGS: Clear to auscultation bilaterally. ABDOMEN: Soft, nondistended, nontender. Normoactive bowel sounds. EXTREMITIES: Her right lower extremity has increased edema compared to discharge 2 days ago as I evaluated her at that time. She also has increased erythema along the posterior lateral aspect of her right malleolar region and right heel. This is very tender to palpation. Posterior calf wound is dressed. She has 2+ peripheral pulses. Extremities are otherwise warm and well perfused. NEUROLOGIC: Grossly nonfocal. LABORATORY DATA: CBC reveals a white blood cell count of 8.7, hemoglobin 11.8, hematocrit 35.1. There are 64% segmented neutrophils, 3% bands, 20% lymphocytes. Basic metabolic panel shows normal electrolytes, normal renal function with a creatinine of 0.5. Her CRP is 9 down from 206 on October 09. Right lower extremity venous Doppler studies negative for DVT. ASSESSMENT/PLAN: The patient is a 77-year-old female with history of atrial fibrillation, hypertension, and recent aggressive right lower extremity cellulitis, who was discharged from the hospital 2 days ago on oral Keflex, returns with increased edema and erythema. 1. Right lower extremity cellulitis. It seems she has failed oral antibiotic therapy. Will admit and resume intravenous cefazolin 2 g intravenous q.8 hours. Consider another surgical evaluation in the morning, though note she did take her dose of Eliquis this morning. Keep leg elevated. Infectious Disease will consult. She is afebrile, has a normal white count, and I note her CRP is down to 9 from 206, which is reassuring. 2. Atrial fibrillation. Her heart rate is regular by palpation and auscultation. She is currently rate controlled. Will check an EKG to document her current rhythm. Hold Eliquis while awaiting surgical evaluation. Continue Multaq for a rhythm stabilization. 3. Hypertension. Continue amlodipine and losartan. 4. Hyperlipidemia. Continue statin. 5. Chronic anemia. Her hemoglobin is at baseline. 6. Deep vein thrombosis prophylaxis. Eliquis. CODE STATUS: Patient is full code. DISPOSITION: Patient was admitted to inpatient status. I anticipate greater than 48 hours hospitalization for ongoing management of her recurrent severe right lower extremity cellulitis. /[id number]/MODL MTDD
[2017-10-14] MEDS: CLOTRIMAZOLE 10 MG TROCHE PO SCH (20:44)
[2017-10-14] MEDS: cycloSPORINE 0.05% 30 DROPERETTE/BOX EACHEYE SCH (21:35)
--- NOTE | 2017-10-14 23:00 | PCMIDPN ---
Assessment/Plan: Assessment: RLE cellulitis - readmission after discharge home on po keflex two days ago. States that her RLE began having increased pain, swelling and some redness and warmth. While she is naphthalene still operator in the leg - especially posterior calf, the appearance of the leg - both size and erythema does not look worse than my last visit on . Feel that it is prudent to readmit and check a CT image of her RLE again. Will continue her on IV ancef as she improved markedly during her recent stay on this medication. CBC is reassuring. Plan: 1. Cefazolin IV. 2. Ct image RLE. 3. Possible surgical consult for evaluation of debridement. Subjective: Patient representing to the ER 2 days after discharge on po keflex after 4-5 day stay for RLE cellulitis that improved on IV cefazolin. Objective: cefazolin # 1 Vital Signs Temp Pulse Resp BP Pulse Ox 36.5 C 82 16 161/79 H 95 10/14/17 19:43 10/14/17 19:43 10/14/17 19:43 10/14/17 19:43 10/14/17 19:43 C-Reactive Protein 9.1 mg/L (<10.0) 10/14/17 17:10 - Physical Exam General Appearance: WD/WN, alert, no apparent distress, non-toxic Respiratory: lungs clear, normal breath sounds, No respiratory distress Cardiac/Chest: regular rate, rhythm, No tachycardia Extremities: erythema, No non-tender, No normal inspection Skin: normal color, warm/dry, No rash Neuro/Psych: alert, normal mood/affect, oriented x 3 ICD10 Worksheet Patient Problems: Problems Problem Status Onset Cellulitis of right leg Acute
[2017-10-15] MEDS ORDERED: ceFAZolin 2 GM/DEXTROSE 100 ML IV SCH (02:00)
[2017-10-15] MEDS: ceFAZolin 2 GM/SWFI 2 GM/20 ML SYR IVP SCH ×3 (02:56→18:13)
[2017-10-15] MEDS: CLOTRIMAZOLE 10 MG TROCHE PO SCH ×5 (05:17→23:03)
[2017-10-15 05:24] LABS: PLATELET COUNT 326 10^3/uL (150-400)
[2017-10-15] MEDS: amLODIPine BESYLATE 5 MG TAB PO SCH (09:42)
[2017-10-15] MEDS: DRONEDARONE HCL 400 MG TAB PO SCH ×2 (09:42→18:13)
[2017-10-15] MEDS: VALSARTAN 160 MG TAB PO SCH (09:42)
[2017-10-15] MEDS: ATORVASTATIN CALCIUM 10 MG TAB PO SCH (09:43)
[2017-10-15] MEDS: cycloSPORINE 0.05% 30 DROPERETTE/BOX EACHEYE SCH ×2 (09:43→20:47)
--- NOTE | 2017-10-15 10:13 | PDMN ---
Medical Necessity Medical necessity: Patient meets inpatient criteria per physician note and [facility] M -71 Cellulitis (patient with increasing swelling and redness over R lateral ankle and increasing pain w/ambulation; recent hospital admission x 6 days for aggressive RLE cellulitis and IV antibiotics; dc'ed home 10/12 on p.o. Keflex; anticipated LOS > 2 midnights for IV cefazolin after failed OP treatment and surgical consult for possible I&D.)
--- NOTE | 2017-10-15 11:18 | ASMTCASEMG ---
Living Arrangements What is your living Answers: With Spouse arrangement? Who do you live with? Type Of Residence What kind of residence do Answers: House you live in? Discharge Plan Comments Coordination Status Comments Notes: Pt is a 77 y/o female admitted for right leg cellulitis. Pt was recently here at [facility] on 10/06/17-10/12/17. PT has been ordered. Pt is scheduled to have imaging done. It is uncertain if pt will require surgery at this time. Needs are TBD at this time. CM to follow. Plan: TBD Date Signed: 10/15/2017 11:18 AM Electronically Signed By:ROSIO Ervin
[2017-10-15] MEDS ORDERED: IOPAMIDOL (ISOVUE-300) 100 ML BTL ONE (12:21)
--- NOTE | 2017-10-15 13:47 | WOCRNPDOC ---
WOCRN Advanced Assessment Note - Skin Integrity Problem, Advanced Assess Right Posterior Calf Dressing Type: Allevyn Life Dressing Description: Clean/Dry, Intact Exudate Amount: Minimal Exudate Characteristic(s): Sanguinopurulent Integumentary Issue Intervention: Dressing Changed, Dressing Initialed & Dated Jinny Wound Tissue: Ecchymotic, Erythema Wound Bed Color: Red, Yellow Wound Bed Constitution: Red/[place] - Non Granular Tissue, Adhered Slough, Loose Slough Site Measurement - Head-to-Toe Length X Width X Depth (cm): 3.9x2.4x0.2 Skin Integrity Problem Comment: Wound is newly evolving and opening. Skin is actively sloughing off during asessement. Cleaned with hypoclorus acid cleanser and applied plurogel to wound bed. Covered with cutimed sorbact foam wound cleanser for non adherent base as patient's wound is quite tender. Wound care will follow later this week. Trinh CHAVEZ visualized wound. Unclear if wound has been cultured yet.
--- NOTE | 2017-10-15 13:50 | HOSPPROG ---
Hospitalist Progress Note Assessment/Plan: # acute cellulitis of the right leg - minimal improvement overnight -remains most uncomfortable when ambulating US RLE (personally reviewed and interpreted) no DVT - WBC 6.4 - cont IV cefazolin - ordering CT LE to rule out deeper infection - cont NSAIDS prn -cont oxycodone prn # Atrial fibrillation - HR's currently controlled- oxygen saturations 94% on RA - holding eliquis in case need for debridement # HLD - cont statin # HTN - cont home meds - BP controlled # proph - SCD to left leg until we restart eliquis # diet- rgular # dispo - > 2MN as requires ongoing diagnostic workup and IV abx I hve discussed the case with RN - we will order CT to eval Subjective: minimal improvement Objective: Vital Signs Temp Pulse Resp BP Pulse Ox 36.9 C 85 20 124/66 H 92 10/15/17 12:00 10/15/17 12:00 10/15/17 12:00 10/15/17 12:00 10/15/17 12:00 Laboratory Results 10/15/17 04:13 10/14/17 10/15/17 10/16/17 05:59 05:59 05:59 Intake Total 550 Balance 550 - Physical Exam Constitutional: no apparent distress Eyes: anicteric sclera Ears, Nose, Mouth, Throat: moist mucous membranes Cardiovascular: irregularly irregular Respiratory: no respiratory distress Gastrointestinal: normoactive bowel sounds Genitourinary: no bladder fullness Skin: other (erythema greatest posterior right calf) Musculoskeletal: asymmetric calves Neurologic: AAOx3 Psychiatric: interacting appropriately Lymph, Heme, Immunologic: no cervical LAD ICD10 Worksheet Patient Problems: Problems Problem Status Onset Cellulitis of right leg Acute
--- NOTE | 2017-10-15 14:52 | PCMIDPN ---
Assessment/Plan: Assessment/Plan: 1. RLe cellulitis with ecchymotic changes: - significantly improved compared to one week ago. -nearly resolved erythema, and improvment in areas of ecchymosis/early necrosis changes compared to last week as well - pain improved as wel. - wbc normal. CRP normal now too ( down from 200) -Ct leg reviewed: no abscess, myonecrosis, or gas. Cellultiis noted. Reviewed results with patient and . -Continue with LE elevation. -discussed with wound care team - care coordinated with RN and hospitalist team. -On Ancef for now. plan on transition to oral tomorrow if remains stable meds ancef 2g q8- Subjective: afebrile. feels better today. swelling down. no increase in redness. pain overall better as well. still sensitive in spots but much improved. denies sob, abd pain or diarrhea. Objective: Vital Signs Temp Pulse Resp BP Pulse Ox 36.9 C 85 20 124/66 H 92 10/15/17 12:00 10/15/17 12:00 10/15/17 12:00 10/15/17 12:00 10/15/17 12:00 Laboratory Results 10/15/17 04:13 10/14/17 10/15/17 10/16/17 05:59 05:59 05:59 Intake Total 550 Balance 550 C-Reactive Protein 9.1 mg/L (<10.0) 10/14/17 17:10 - Physical Exam General Appearance: alert, no apparent distress Respiratory: lungs clear Cardiac/Chest: regular rate, rhythm Extremities: swelling (RLE but improved from last week. quite a bit of wrinkling noted. ) Abdomen: normal bowel sounds, non-tender, soft, No distended Skin: No erythema (brawny discoloration over most of the RLE now. undelrying venous stasis dermatitis noted. few spot of ecchymosis but those are improved. posterior calf with skin tear. unable to exam fully due to pain when pulling dressing down. ) - Time Spent With Patient Time Spent with Patient: greater than 35 minutes Time Spent with Patient: Greater than 35 minutes spent on this patients care, greater than 50% of time spent counseling, educating, and coordinating care regarding the above mentioned plan. ICD10 Worksheet Patient Problems: Problems Problem Status Onset Cellulitis of right leg Acute
[2017-10-16] MEDS: ceFAZolin 2 GM/SWFI 2 GM/20 ML SYR IVP SCH ×3 (01:30→18:19)
[2017-10-16] MEDS: CLOTRIMAZOLE 10 MG TROCHE PO SCH ×5 (05:50→20:45)
[2017-10-16] MEDS: DRONEDARONE HCL 400 MG TAB PO SCH ×2 (08:20→18:18)
[2017-10-16] MEDS: VALSARTAN 160 MG TAB PO SCH (08:20)
[2017-10-16] MEDS: ATORVASTATIN CALCIUM 10 MG TAB PO SCH (08:20)
[2017-10-16] MEDS: amLODIPine BESYLATE 5 MG TAB PO SCH (08:20)
[2017-10-16] MEDS: cycloSPORINE 0.05% 30 DROPERETTE/BOX EACHEYE SCH (08:39)
--- NOTE | 2017-10-16 12:08 | HOSPPROG ---
Hospitalist Progress Note Assessment/Plan: # cellulitis of the right leg - improving CRP 200 --> 9. CT lower ext reassuring. US RLE (personally reviewed and interpreted) no DVT - WBC 6.4 - cont IV cefazolin, possible transition to orals today and d/c tomorrow if remains stable - cont NSAIDS prn - cont oxycodone prn - cont wound care to posterior calf wound # paroxysmal Atrial fibrillation - HR's currently controlled- oxygen saturations 94% on RA - resume eliquis (held on admission while determining if surgical intervention needed) - cont Multaq # HLD - cont statin # HTN - cont home meds - BP controlled # proph - eliquis # diet- rgular # dispo - > 2MN as requires ongoing diagnostic workup and IV abx Subjective: PT feels well. Leg pain and swelling improved. No fevers. No CP, SOB or palpitations. Objective: Vital Signs Temp Pulse Resp BP Pulse Ox 36.9 C 81 16 134/83 H 94 10/16/17 10:55 10/16/17 10:55 10/16/17 10:55 10/16/17 10:55 10/16/17 10:55 Laboratory Results 10/15/17 04:13 10/16/17 04:30 10/15/17 10/16/17 10/17/17 05:59 05:59 05:59 Intake Total 1550 Balance 1550 - Physical Exam Constitutional: no apparent distress Eyes: PERRL Ears, Nose, Mouth, Throat: moist mucous membranes Cardiovascular: regular rate and rhythym Respiratory: no respiratory distress, clear to auscultation Gastrointestinal: normoactive bowel sounds, soft, non-tender abdomen Skin: warm Musculoskeletal: full muscle strength, other (RLE decreased erythema and decreased edema, calf wound dressed) Neurologic: AAOx3 Psychiatric: interacting appropriately ICD10 Worksheet Patient Problems: Problems Problem Status Onset Cellulitis of right leg Acute
[2017-10-16] MEDS: APIXABAN 5 MG TAB PO SCH ×2 (12:57→20:45)
--- NOTE | 2017-10-16 18:10 | PCMIDPN ---
Assessment/Plan: Assessment/Plan: * Right lower extremity cellulitis: Continued clinical improvement. Minimal residual erythema around posterior calf ulceration. Given improvement, will transition to Augmentin 875 mg orally twice daily with plans for discharge if remains stable and improved tomorrow. Continue lower extremity elevation. Will need follow-up in our office next week for continued assessment. Discussed with patient importance of wound healing in order to achieve resolution. Time spent, 25 min, of which greater than half was spent in education/counseling /coordination of care related to right lower extremity cellulitis and plan of care. Side effects of Augmentin reviewed with patient. 10/16/17 18:06 10/16/17 18:11 Subjective: Patient feels significantly improved. Notes significant decrease in redness after posterior scab was unroofed. Objective: Vital Signs Temp Pulse Resp BP Pulse Ox 36.9 C 90 16 111/59 L 93 10/16/17 14:58 10/16/17 14:58 10/16/17 14:58 10/16/17 14:58 10/16/17 14:58 Laboratory Results 10/15/17 04:13 10/16/17 04:30 10/15/17 10/16/17 10/17/17 05:59 05:59 05:59 Intake Total 1550 Balance 1550 C-Reactive Protein 9.1 mg/L (<10.0) 10/14/17 17:10 Cefazolin # 3 - Physical Exam General Appearance: alert, no apparent distress EENT: No scleral icterus Extremities: inflammation (Right lower extremity with small amount erythema over posterior calf adjacent to wound bed which shows no purulence; edema markedly decreased; mild tenderness around posterior wound ulceration) Lymphatic: other (No lymphangitis right thigh) ICD10 Worksheet Patient Problems: Problems Problem Status Onset Cellulitis of right leg Acute
[2017-10-16] MEDS: AMOXICILLIN/CLAVULANATE POT 875/125 MG TAB PO SCH (18:18)
[2017-10-17] MEDS: cycloSPORINE 0.05% 30 DROPERETTE/BOX EACHEYE SCH ×2 (02:53→09:17)
[2017-10-17] MEDS: CLOTRIMAZOLE 10 MG TROCHE PO SCH ×2 (04:08→09:15)
[2017-10-17] MEDS: AMOXICILLIN/CLAVULANATE POT 875/125 MG TAB PO SCH (09:13)
[2017-10-17] MEDS: APIXABAN 5 MG TAB PO SCH (09:14)
[2017-10-17] MEDS: ATORVASTATIN CALCIUM 10 MG TAB PO SCH (09:14)
[2017-10-17] MEDS: VALSARTAN 160 MG TAB PO SCH (09:14)
[2017-10-17] MEDS: amLODIPine BESYLATE 5 MG TAB PO SCH (09:15)
[2017-10-17] MEDS: DRONEDARONE HCL 400 MG TAB PO SCH (09:16)
[2017-10-17 11:07] VITALS: BP 127/73
--- NOTE | 2017-10-17 12:15 | PCMIDPN ---
Assessment/Plan: Assessment: RLE cellulitis - improved on IV Ancef. Patient will discharge on Augmentin for 1 week. Follow-up in office within 7 days. Plan: 1. Transition to p.o. Augmentin. 2. Okay for discharge. 3. Follow up in office in 7 days. 10/17/17 12:13 Subjective: Patient states that her right lower extremity is significantly improved. Decreased pain. Decreased swelling. Objective: Augmentin # 1 Vital Signs Temp Pulse Resp BP Pulse Ox 37.0 C 85 18 127/73 H 94 10/17/17 11:06 10/17/17 11:06 10/17/17 11:06 10/17/17 11:06 10/17/17 11:06 Laboratory Results 10/15/17 04:13 10/16/17 04:30 10/16/17 10/17/17 10/18/17 05:59 05:59 05:59 Intake Total 1550 Balance 1550 C-Reactive Protein 9.1 mg/L (<10.0) 10/14/17 17:10 - Physical Exam General Appearance: WD/WN, alert, no apparent distress, non-toxic Respiratory: lungs clear, normal breath sounds, No respiratory distress Cardiac/Chest: regular rate, rhythm, No tachycardia Extremities: non-tender, erythema, No normal inspection (Small amount of erythema and edema remaining the right calf.) Skin: normal color, warm/dry, No rash Neuro/Psych: alert, normal mood/affect, oriented x 3 ICD10 Worksheet Patient Problems: Problems Problem Status Onset Cellulitis of right leg Acute
--- NOTE | 2017-10-17 13:11 | GDS ---
[f rep st] DISCHARGE SUMMARY DISCHARGE DIAGNOSES: 1. Right lower extremity cellulitis. 2. Paroxysmal atrial fibrillation. 3. Hypertension. 4. Hyperlipidemia. CONSULTANTS: Rg Mendoza MD, Infectious Disease. HISTORY: For details, please see the dictated history and physical dated October 14, 2017. In brief, the patient is a 77-year-old female who was recently admitted to the hospital for an aggressive right lower extremity cellulitis. She was discharged on oral Keflex, but returned to the hospital 2 days later with increased redness and swelling. She was readmitted for IV antibiotic therapy. HOSPITAL COURSE: The patient was admitted to the med/surg unit. ID consult was obtained. She was c ontinued on IV cefazolin, and she had significant clinical improvement. It is noted her CRP has tren ded down from 206 to 9. Overall, her cellulitis has been slow to respond, but has markedly improved, and she is stable for discharge home. DISPOSITION: The patient is discharged home in stable condition. FOLLOWUP: 1. [facility] for Infectious Disease. 2. Smith Gonzalez MD, primary care. DISCHARGE MEDICATIONS: Please see [facility] for completed outpatient medication list. New medication s on discharge include Augmentin 875 p.o. b.i.d., #14, no refills. She will discontinue the Keflex p reviously ordered, and continue all other outpatient medications as previously prescribed including M ultaq and Eliquis for atrial fibrillation, amlodipine, valsartan for hypertension, atorvastatin for h yperlipidemia, p.r.n. Xopenex and daily clotrimazole troches while on antibiotics for recent thrush. /[id number]/MODL
== END 2017-10-17 12:54 | disposition home or self-care (01) | DRG 603 ==
LOC: F3E 20:06
PROVIDERS: ADMIT Hospitalist; ATTEND Hospitalist
DX: L03.115 Cellulitis of right lower limb (principal); I48.0 Paroxysmal atrial fibrillation; E78.5 Hyperlipidemia, unspecified; I10 Essential (primary) hypertension; D53.9 Nutritional anemia, unspecified; R91.8 Other nonspecific abnormal finding of lung field
CPT/HCPCS: 96374; 97161-GP; J0690; Q9967

== ENCOUNTER → 2017-12-13 | Outpatient (CLI) | payer BC | LOC: BMCIMAGING 12:49 | PROVIDERS: ATTEND Internal Medicine | DX: Z12.31 Encounter for screening mammogram for malignant neoplasm of breast (principal) ==

== ENCOUNTER → 2018-03-11 | Day surgery (SDC) | payer BC ==
[~2018-03-11] MED LIST: ALTEPLASE 2 MG VIAL IVP PRN; FLUMAZENIL 0.5 MG/5 ML MDV IVP ONE; FLUMAZENIL 0.5 MG/5 ML MDV IVP PRN; GLUCAGON HCL 1 MG VIAL IVP PRN; HEPARIN 10,000 UNIT/10 ML MDV (1,000 UNIT/ML) IVP PRN; LIDOCAINE 1% 300 MG/30 ML SDV ONE; MEPERIDINE 25 MG/ML SYR IVP PRN; MIDAZOLAM 2 MG/2 ML VIAL IVP PRN; MIDAZOLAM 2 MG/2 ML VIAL ONE; NALOXONE HCL 0.4 MG/ML INJ IVP PRN; NALOXONE HCL 0.4 MG/ML INJ ONE; NS 1,000 ML IV SCH; ONDANSETRON 4 MG/2 ML VIAL IVP PRN; ONDANSETRON 4 MG/2 ML VIAL ONE; PROTAMINE SULFATE 50 MG/5 ML VIAL IVP PRN; fentaNYL 100 MCG/2 ML INJ IVP PRN; fentaNYL 100 MCG/2 ML INJ ONE
[2018-03-11 11:13] LABS: INR 0.96 (0.83-1.16)
--- NOTE | 2018-03-11 11:54 | PDPROPOC ---
Sedation Plan of Care Sedation Plan of Care: vital signs stable, mental status noted, patient educated of risks, benefits, alternatives, patient can tolerate sedation ASA Classification: ASA 1 Planned drugs: midazolam Mallampati Score: Class 2 Mallampati Reference Image: Patient passed 3-3-2 rule?: Yes
--- NOTE | 2018-03-11 11:58 | PDGENHP ---
History & Physical Chief Complaint: MULTIPLE LUNG LESIONS History of Present Illness: ESPERANZA LUNG MASS Pertinent Past, Social, Family History: B/L HIP REPLACEMENT; A FIB; Relevant Physical Exam: NO DISTRESS Cardiorespiratory Assessment: CTA, RRR
--- NOTE | 2018-03-11 13:19 | PDRADPN ---
Radiology Procedure Note Date of Procedure: 03/11/18 Radiologist: Hailey Solorio Anesthesia: IV Sedation Pre-op Diagnosis: ESPERANZA LUNG MASS Post-op Diagnosis: SAME Indication: R/O INFECTION VERSUS CANCER Procedure: CT GUIDED ESPERANZA BIOPSY Finding(s): TINY PTX POST Inf/Abcess present in the surg proc area at time of surgery?: No
[2018-03-11] MEDS: LOSARTAN POTASSIUM 50 MG TAB PO SCH ×2 (14:15→14:16)
[2018-03-11 14:16] VITALS: BP 191/107
== END | disposition home or self-care (01) ==
LOC: FIMAGING 09:58
PROVIDERS: ATTEND Internal Medicine Critical Care Medicine
PROC: 0BBG3ZX Excision of Left Upper Lung Lobe, Percutaneous Approach, Diagnostic (ICD-10-PCS; principal; 2018-03-11)
DX: D14.32 Benign neoplasm of left bronchus and lung (principal); J45.909 Unspecified asthma, uncomplicated; I48.91 Unspecified atrial fibrillation; Z96.643 Presence of artificial hip joint, bilateral
CPT/HCPCS: J2250; J2310; J2405; J3010

== ENCOUNTER → 2018-12-15 | Outpatient (CLI) | payer BC | LOC: BMCIMAGING 14:45 ==